=== PATIENT | female | born 1970 | race Two or more races ===

== ENCOUNTER 2024-05-20 14:37 | Outpatient (AMB) | payer MEDICAID, SELFPAY ==
[2024-05-20 15:03] VITALS: BP 105/73; PULSE 72; RESP 18; TEMP 36.2; O2SAT 96; BMI 26.6
--- NOTE | 2024-05-20 15:03 | ORTHONT_ITS ---
Vital signs 05/20/24 15:03 Height 1.6 m Height Method Stated Weight 68.209 kg Weight Measurement Method Standing Scale BMI 26.6 BP 105/73 Blood Pressure Source Automatic Cuff Blood Pressure Location Right Upper Arm Position Sitting Respiration 18 Pulse 72 Pulse Source Monitor Temp 97.1 F Temp Source Temporal Artery Scan Pulse Oximetry (%) 96 Oxygen Delivery Method Room Air Med/Allergies Allergies & Medications Allergies Penicillins Allergy (Severe, Verified 05/20/24 15:05) Swelling of Lip/Tongue/Throat Medication Reconciliation cyclobenzaprine 10 mg tablet 10 mg PO HS PRN Insomnia 08/02/20 [History Confirmed 05/20/24] acetaminophen 500 mg capsule 500 mg PO Q6H PRN 05/20/24 [History Confirmed 05/20/24] diclofenac sodium 1 % topical gel 2 g topical QID 05/20/24 [History Confirmed 05/20/24] ibuprofen 800 mg tablet 800 mg PO Q6H 05/20/24 [History Confirmed 05/20/24] meloxicam 7.5 mg tablet 7.5 mg PO QDAY #45 tabs 05/20/24 [Rx] Subjective Visit Visit for: new patient and knee Immunization / Flu Flu Vaccine in the Last 12 Months: No Flu Vaccine Exclusion Criteria: No Exclusion Criteria History of Present Illness Chief complaint: LEFT KNEE PAIN Patient is a 53-year-old female with Left knee pain and left knee arthritis. We will order weightbearing x-rays that she does not have any. The pains on the medial aspect of her knees. She has tried multiple anti-inflammatories as well as home exercises. She points to the medial aspect of her knee when asked where the pain is. 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 Exam Exam Patient is in no acute distress and is cooperative with the examination today. Breathing is nonlabored. Patient has a normal mood and affect. Bilateral extremities were evaluated and demonstrates sensation intact to light touch. Palpable pedal pulses are present. No significant edema is present. Bilateral hips were examined. The patient has no pain with log roll of the hips. Internal rotation to 30 degrees and external rotation to 30 degrees is painless. Negative FADIR. Right knee was examined today. The right knee is in reasonable alignment. Range of motion from 0-120 degrees. Knee is stable to varus and valgus as well as AP translation with <5mm. Patient has a negative McMurrays. There is no pain with patellofemoral compression and no crepitus noted. The knee is nontender to palpation. Left knee was examined today. The left knee is in [varus] alignment. Range of motion from [0-115] degrees. Knee is stable to varus and valgus as well as AP translation with <5mm. Patient has a [negative] McMurrays. There is [no] pain with patellofemoral compression and [no] crepitus noted. The knee is [tender] to palpation [medially]. Assessment and Plan Problem List (1) Arthritis of left knee: Status: Acute Plan: Patient is a pleasant 53-year-old female with likely left knee pain and left knee arthritis. We will order x-rays to see what her knee looks like. We will likely start with conservative treatment including injections at the next visit. We have given her prescription of meloxicam for now. We will see her at her next available visit after x-rays are performed (2) Pain in left knee: Status: Acute Office Procedures GNS Level of Care Nursing/Assessment Patient Status: Established Patient Nursing Assessment/Reassesment: Medication Reconciliation, Update PMH in EMR and Vital Signs Coordination of Care: Complex Care and Chronic Disease 1-5, Education Complex Pt/Fam, Consent,records obtained, informed consent, Results/Orders obtained and Staff clarify orders Established Patient Charge Established Patient Point Assignment: 95 Established Patient Point Charge: EP Level 3 (80-115) Past Medical History Past Medical History Have you ever been diagnosed with any of the following: Neurological Problems Seizures: No Head Trauma: Yes ( A CHILD) Cardiology Problems Hypercholesterolemia: Yes (TAKES MED) Congestive Heart Failure: No Edema: No Cellulitis: No Varicose Veins: No Respiratory Problems Chronic Obstructive Pulmonary Disease (COPD): No Tuberculosis: Yes (POSITIVE PPD. TREATMENT COMPLETED IN THE PAST) Sleep Apnea: No Stomache/Intestinal Problems Hepatitis: No Colorectal Cancer: No Gastroesophageal Reflux Disease: Yes Genital/Urinary Problems Renal Disease: No Reproductive Problems Breast Cancer: No Previous Pregnancies: Yes (X6) Musculoskeletal Problems Bone Cancer: No Carpal Tunnel Syndrome: No Endocrine Problems Diabetes Mellitus Type 1: No Diabetes Mellitus Type 2: No Parathyroid Disease: No Blood Problems Anemia: Yes Other Problems Hospitalization: No Shingles: No Falls: No Blood Transfusions: No Blood Transfusion Reaction: No Anesthesia Reactions: No Organ Transplant: No Chemotherapy: No Radiation Therapy: No MRSA: No Chicken Pox: Yes (?) Measles: No Mumps: No Cancer: No Cervical Cancer: No Lung Cancer: No Ovarian Cancer: No Surgical History Hysterectomy: No Pacemaker: No
== END 2024-05-20 15:21 | disposition home or self-care (01) ==
LOC: HODSRG 14:37
PROVIDERS: PCP Family Medicine; Referring Provider Family Medicine; Supervising Provider Orthopaedic Surgery Adult Reconstructive Orthopaedic Surgery; Visit Provider Orthopaedic Surgery Adult Reconstructive Orthopaedic Surgery
DX: M17.12 Unilateral primary osteoarthritis, left knee (principal); M25.562 Pain in left knee; E78.00 Pure hypercholesterolemia, unspecified; K21.9 Gastro-esophageal reflux disease without esophagitis
CPT/HCPCS: 99213; G0463

== ENCOUNTER 2024-06-18 10:30 | Outpatient (RCR) | payer MEDICAID, SELFPAY ==
--- NOTE | 2024-05-29 15:48 | PT.OIERPT ---
PT OP Initial Eval Patient Information Outpatient Physical Therapy Treatment Date: 05/29/24 Visit Reasons: Pain in left ankle/foot/joints Medical Diagnosis: M25.572 M25.562 S39.012D Treatment Dx #1: L knee pain Treatment Dx #2: LBP Start of Care: 05/29/24 Date of Onset: 7 months ago Smoking Status Smoking Status: Never smoker Initial Assessment Subjective: Pt is 53 yr old kyrgyz speaking female who c/o L knee pain and points to the medial aspect and reports constant 7/10 pain. 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 Increased LBP with bending, standing after sitting down and waking up. Unable to kneel due to pain. PMH: gastritis Imaging: Xray in EMR: Moderate narrowing medial joint space Pt goal: to do normal life with less L knee and LBP Objective: L knee AROM: Extension: -5 deg with pain Flexion: 110 deg with pain Venita's: positive Trunk AROM: FB: 10 from floor with pain Extension: 30% of full with relief Rotation: WNL no pain SB: increased LBP Assessment: Pt presents with L knee extension and flexion sensitivity consistent with meniscus tear. The pain doesn't seem to be radiating from the L/S and she feels LBP relief with extension so she was given HEP printout of extension based therex.Pt would benefit from skilled therapy and has fair rehab potential to meet goals. 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 1. Ind with HEP ? 2. Improved sitting/standing tolerance to 30 minutes with <=4/10 LBP ? 3. Decreased lower paraspinal TTP from mod to min 4. Improved L Knee AROM to full extension and 120 deg flexion Treatment Plan 1. Manual therapy ? 2. Therex ? 3. Modalities as indicated, moist heat, ice, estim, mechanical traction Frequency and Duration: 1-2x a week for 12 visits Certification Dates: 05/29/24 to 08/27/24 Procedure Charges OP PT Eval Mod Complex 30 minutes: Yes
--- NOTE | 2024-06-10 17:50 | PT.ODAYNRPT ---
PT Outpatient Daily Note OP Daily Note Outpatient Physical Therapy Treatment Date: 06/10/24 Visit Reasons: Pain in left ankle/foot/joints Subjective: pt. states no increase in pain post treatment Objective: see f/s per ther-ex MHP x7' post Rx Assessment: pt. can eccentrically control body weight on total gym Plan: continue POC Length of Time (minutes) of Treatment: 30 Minutes Procedure Charges Therapeutic Exercise 30 minutes: Yes
--- NOTE | 2024-06-18 11:57 | PT.ODAYNRPT ---
PT Outpatient Daily Note OP Daily Note Outpatient Physical Therapy Treatment Date: 06/18/24 Visit Reasons: Pain in left ankle/foot/joints Subjective: Pt reports L knee continues to be painful. Objective: Please see flow sheet for ther ex list. Assessment: Medial knee collapse present during squat exercise, verbal and tactile cues to correct. Plan: Continue with POC. Length of Time (minutes) of Treatment: 30 Minutes Procedure Charges Therapeutic Exercise 30 minutes: Yes
== END 2024-06-21 23:59 | disposition home or self-care (01) ==
LOC: CPTX 10:30
PROVIDERS: PCP Family Medicine; Referring Provider Family Medicine; Visit Provider Family Medicine
DX: M25.562 Pain in left knee (principal); M54.50 Low back pain, unspecified; M25.572 Pain in left ankle and joints of left foot; S39.012D Strain of muscle, fascia and tendon of lower back, subsequent encounter; X58.XXXD Exposure to other specified factors, subsequent encounter
CPT/HCPCS: 97110; 97162

== ENCOUNTER 2024-07-09 08:00 | Outpatient (RCR) | payer MEDICAID, SELFPAY ==
--- NOTE | 2024-06-25 09:54 | PT.ODAYNRPT ---
PT Outpatient Daily Note OP Daily Note Outpatient Physical Therapy Treatment Date: 06/25/24 Visit Reasons: Pain in left foot Subjective: Continued L knee pain. She ascends/descends ladders with the R LE. Objective: See f/S for therex MHP: x7' L knee Assessment: Pt has knee rotation sensitivity consistent with Xray results of Moderate narrowing medial joint space?? Plan: Continue as tolerated Length of Time (minutes) of Treatment: 30 Minutes Procedure Charges Therapeutic Exercise 30 minutes: Yes
--- NOTE | 2024-07-02 09:04 | PT.ODAYNRPT ---
PT Outpatient Daily Note OP Daily Note Outpatient Physical Therapy Treatment Date: 07/02/24 Visit Reasons: Pain in left foot Subjective: pt. reports therapy is slowly improving low back pain, she states 01/29 pain today prior to therapy. Objective: see flowsheet for ther-ex MT STM L/S with flexbar x7 mins pain 01/29 post PT intervention 11/29 Assessment: Ther-ex and MT STM to low back reduced pain Plan: continue PT per POC Length of Time (minutes) of Treatment: 30 Minutes Procedure Charges Therapeutic Exercise 30 minutes: Yes
--- NOTE | 2024-07-09 08:25 | PT.ODAYNRPT ---
PT Outpatient Daily Note OP Daily Note Outpatient Physical Therapy Treatment Date: 07/09/24 Visit Reasons: Pain in left foot Subjective: Pt reports L knee pain relief after therapy visits that lasts until that night Objective: See F/s for therex Assessment: Low tissue irritability of L knee with therex Plan: Continue per POC Length of Time (minutes) of Treatment: 30 Minutes Procedure Charges Therapeutic Exercise 30 minutes: Yes
== END 2024-07-22 23:59 | disposition home or self-care (01) ==
LOC: CPTX 08:00
PROVIDERS: PCP Family Medicine; Referring Provider Family Medicine; Visit Provider Family Medicine
DX: M25.562 Pain in left knee (principal); M54.50 Low back pain, unspecified; M25.572 Pain in left ankle and joints of left foot; S39.012D Strain of muscle, fascia and tendon of lower back, subsequent encounter; X58.XXXD Exposure to other specified factors, subsequent encounter
CPT/HCPCS: 97110

== ENCOUNTER 2024-07-22 07:54 | Outpatient (AMB) | payer MEDICAID, SELFPAY ==
[2024-07-22 08:25] VITALS: BP 113/75; PULSE 71; RESP 18; TEMP 36.3; O2SAT 97; BMI 26.6
--- NOTE | 2024-07-22 08:25 | PD.ORTHCLVIS ---
Vital signs 07/22/24 08:25 Height 1.6 m Height Method Stated Weight 68.181 kg Weight Measurement Method Standing Scale BMI 26.6 BP 113/75 Blood Pressure Source Automatic Cuff Blood Pressure Location Right Upper Arm Position Sitting Respiration 18 Pulse 71 Pulse Source Monitor Temp 97.3 F Temp Source Temporal Artery Scan Pulse Oximetry (%) 97 Oxygen Delivery Method Room Air Med/Allergies Allergies & Medications Allergies Penicillins Allergy (Severe, Verified 07/22/24 08:26) Swelling of Lip/Tongue/Throat Medication Reconciliation cyclobenzaprine 10 mg tablet 10 mg PO HS PRN Insomnia 08/02/20 [History Confirmed 07/22/24] acetaminophen 500 mg capsule 500 mg PO Q6H PRN 05/20/24 [History Confirmed 07/22/24] diclofenac sodium 1 % topical gel 2 g topical QID 05/20/24 [History Confirmed 07/22/24] ibuprofen 800 mg tablet 800 mg PO Q6H 05/20/24 [History Confirmed 07/22/24] meloxicam 7.5 mg tablet 7.5 mg PO QDAY #45 tabs 05/20/24 [Rx Confirmed 07/22/24] Exam Exam Patient is in no acute distress and is cooperative with the examination today. Breathing is nonlabored. Patient has a normal mood and affect. Bilateral extremities were evaluated and demonstrates sensation intact to light touch. Palpable pedal pulses are present. No significant edema is present. Bilateral hips were examined. The patient has no pain with log roll of the hips. Internal rotation to 30 degrees and external rotation to 30 degrees is painless. Negative FADIR. Right knee was examined today. The right knee is in reasonable alignment. Range of motion from 0-120 degrees. Knee is stable to varus and valgus as well as AP translation with <5mm. Patient has a negative McMurrays. There is no pain with patellofemoral compression and no crepitus noted. The knee is nontender to palpation. Left knee was examined today. The left knee is in [varus] alignment. Range of motion from [0-115] degrees. Knee is stable to varus and valgus as well as AP translation with <5mm. Patient has a [negative] McMurrays. There is [no] pain with patellofemoral compression and [no] crepitus noted. The knee is [tender] to palpation [medially]. X-rays demonstrate moderate arthritis medially and joint space narrowing Assessment and Plan Problem List (1) Arthritis of left knee: Status: Acute Plan: Patient is a pleasant 53-year-old female with likely left knee pain and left knee arthritis. We recommend meloxicam and will start with a cortisone injection today Recommend knee cortisone injection as patient would like to proceed with conservative treatment at this time. The risks and benefits of the procedure were reviewed with the patient and patient gave verbal consent to continue with the procedure. Procedure: performed by Dr. Malone Using sterile technique the left knee was thoroughly prepped with alcohol, and approximately 1 cc of Kenalog 40 mg/mL and 4 cc of 1% lidocaine was injected without resistance into the medial tibial femoral joint space. The patient tolerated the procedure. (2) Pain in left knee: Status: Acute Office Procedures GNS Level of Care Nursing/Assessment Patient Status: Established Patient Nursing Assessment/Reassesment: Medication Reconciliation, Update PMH in EMR and Vital Signs Coordination of Care: Complex Care and Chronic Disease 1-5, Education Complex Pt/Fam, Consent,records obtained, informed consent, Results/Orders obtained and Staff clarify orders Special Needs: Language special needs Established Patient Charge Established Patient Point Assignment: 95 Established Patient Point Charge: EP Level 3 (80-115) Surgical Proc/IM SQ injection Major Surgical Procedure: Yes (KNEE INJECTION) Medication Given Medication Given Medication Given: Yes Documented Dose Given: 4 Route: Infiitration Medication Given Medication Given Medication Given: Yes Documented Dose Given: 1 Route: Infiitration Office Meds Xylocaine 10 mg/mL (1 %) injection solution Performing Provider: Hosea Malone MD Performing Location: [facility] Administered by: Hosea Malone MD on 07/22/24 09:42 Dose Route Admin Location Dispensed Lot Number Expiration Date [facility] [employer] 20 mL Infiltration 20 mL [id number] 03/21/27 52504-754-26 [facility] triamcinolone acetonide 40 mg/mL suspension for injection Performing Provider: Hosea Malone MD Performing Location: [facility] Administered by: Hosea Malone MD on 07/22/24 09:42 Dose Route Admin Location Dispensed Lot Number Expiration Date [facility] [employer] 40 mg Infiltration LEFT 1 mL [id number] 12/19/25 1743-6931-75 [employer] [place] Intake Visit Data Collection New Patient or Established: Established Patient (seen at [facility] within 3 years) Reason for Visit:: F/U XRAYS Seen by Clinical Staff ONLY (RN/QUIN): No Verbal consent obtained for Telemed visit?: No Tabulating Machine Mechanic Required: Yes PCP or OBGYN visit in last 3 months: Yes Hx Now: No Do You Feel Safe at Home: Yes Authorities Contacted: N/A Questionairres Past Medical History Past Medical History Have you ever been diagnosed with any of the following: Neurological Problems Seizures: No Head Trauma: Yes ( A CHILD) Cardiology Problems Hypercholesterolemia: Yes (TAKES MED) Congestive Heart Failure: No Edema: No Cellulitis: No Varicose Veins: No Respiratory Problems Chronic Obstructive Pulmonary Disease (COPD): No Tuberculosis: Yes (POSITIVE PPD. TREATMENT COMPLETED IN THE PAST) Sleep Apnea: No Stomache/Intestinal Problems Hepatitis: No Colorectal Cancer: No Gastroesophageal Reflux Disease: Yes Genital/Urinary Problems Renal Disease: No Reproductive Problems Breast Cancer: No Previous Pregnancies: Yes (X6) Musculoskeletal Problems Bone Cancer: No Carpal Tunnel Syndrome: No Endocrine Problems Diabetes Mellitus Type 1: No Diabetes Mellitus Type 2: No Parathyroid Disease: No Blood Problems Anemia: Yes Other Problems Hospitalization: No Shingles: No Falls: No Blood Transfusions: No Blood Transfusion Reaction: No Anesthesia Reactions: No Organ Transplant: No Chemotherapy: No Radiation Therapy: No MRSA: No Chicken Pox: Yes (?) Measles: No Mumps: No Cancer: No Cervical Cancer: No Lung Cancer: No Ovarian Cancer: No Surgical History Hysterectomy: No Pacemaker: No Subjective Visit Visit for: follow up visit, knee and x-rays Immunization / Flu Flu Vaccine in the Last 12 Months: Yes Flu Vaccine Exclusion Criteria: Already Received History of Present Illness Chief complaint: F/U XRAYS Patient is a 53-year-old female with Left knee pain and left knee arthritis. The pains on the medial aspect of her knees. She has tried multiple anti-inflammatories as well as home exercises. She points to the medial aspect of her knee when asked where the pain is. She is here for xray results. 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
== END 2024-07-22 09:13 | disposition home or self-care (01) ==
PROVIDERS: PCP Family Medicine; Referring Provider Family Medicine; Supervising Provider Orthopaedic Surgery Adult Reconstructive Orthopaedic Surgery; Visit Provider Orthopaedic Surgery Adult Reconstructive Orthopaedic Surgery
DX: M17.12 Unilateral primary osteoarthritis, left knee (principal); M25.562 Pain in left knee; E78.00 Pure hypercholesterolemia, unspecified; K21.9 Gastro-esophageal reflux disease without esophagitis
CPT/HCPCS: 20610; 99213; J3301; J3490; G0463

== ENCOUNTER 2024-08-21 16:00 | Outpatient (RCR) | payer MEDICAID, SELFPAY ==
--- NOTE | 2024-07-24 16:32 | PT.ODAYNRPT ---
PT Outpatient Daily Note OP Daily Note Outpatient Physical Therapy Treatment Date: 07/24/24 Visit Reasons: Pain in left foot Subjective: Pt reports knee pain resolves for a short time after she leaves her PT session but once she is home and performs ADL s pain returns. Objective: Please see flow sheet for ther ex list. Assessment: Pt got a cramp during PT session pt rested a few minutes then resolved. Plan: Continue with POC. Length of Time (minutes) of Treatment: 30 Minutes Procedure Charges Therapeutic Exercise 30 minutes: Yes
--- NOTE | 2024-08-07 17:38 | PT.ODAYNRPT ---
PT Outpatient Daily Note OP Daily Note Outpatient Physical Therapy Treatment Date: 08/07/24 Visit Reasons: Pain in left foot Subjective: Less L knee pain since recent kenalog injection on 07/22 Objective: See F/S for therex MHP: x7' L knee Assessment: Good therex tolerance with low tissue irritability Plan: Continue per POC Length of Time (minutes) of Treatment: 30 Minutes Procedure Charges Therapeutic Exercise 30 minutes: Yes
--- NOTE | 2024-08-13 17:36 | PT.ODAYNRPT ---
PT Outpatient Daily Note OP Daily Note Outpatient Physical Therapy Treatment Date: 08/13/24 Visit Reasons: Pain in left foot Subjective: Less L knee pain since recent kenalog injection on 07/22 Objective: See F/S for therex Assessment: Good therex tolerance with low tissue irritability with squatting and total gym Plan: Continue per POC Length of Time (minutes) of Treatment: 30 Minutes Procedure Charges Therapeutic Exercise 30 minutes: Yes
--- NOTE | 2024-08-21 19:19 | PT.ODAYNRPT ---
PT Outpatient Daily Note OP Daily Note Outpatient Physical Therapy Treatment Date: 08/21/24 Visit Reasons: Pain in left foot Subjective: Less L knee pain since recent kenalog injection on 07/22 Objective: See F/S for therex Assessment: Good therex tolerance with low tissue irritability with squatting and total gym Plan: Continue per POC Length of Time (minutes) of Treatment: 30 Minutes Procedure Charges Therapeutic Exercise 30 minutes: Yes
== END 2024-08-22 23:59 | disposition home or self-care (01) ==
LOC: CPTX 16:00
PROVIDERS: PCP Family Medicine; Referring Provider Family Medicine; Visit Provider Family Medicine
DX: M25.562 Pain in left knee (principal); M54.50 Low back pain, unspecified; M25.572 Pain in left ankle and joints of left foot; S39.012D Strain of muscle, fascia and tendon of lower back, subsequent encounter; X58.XXXD Exposure to other specified factors, subsequent encounter
CPT/HCPCS: 97110

== ENCOUNTER 2024-09-17 08:00 | Outpatient (RCR) | payer MEDICAID, SELFPAY ==
--- NOTE | 2024-08-27 17:42 | PT.ODAYNRPT ---
PT Outpatient Daily Note OP Daily Note Outpatient Physical Therapy Treatment Date: 08/27/24 Visit Reasons: Pain in left foot Subjective: Less L knee pain since recent kenalog injection on 07/22 Objective: See F/S for therex Assessment: Good therex tolerance with low tissue irritability with squatting and total gym Plan: Continue per POC Length of Time (minutes) of Treatment: 30 Minutes Procedure Charges Therapeutic Exercise 30 minutes: Yes
--- NOTE | 2024-09-10 08:56 | PT.ODAYNRPT ---
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
--- NOTE | 2024-09-17 08:21 | PT.ODS1RPT ---
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 Increased standing tolerance to 60 mins Objective: See F/S for therex MHP: x7' L knee L knee AROM: Flexion: 125 deg Extension: full Assessment: Pt has attended 12/12 Rx sessions with good progress to meet therapy goals. Pt has improved standing tolerance for more than 30 mins and L knee AROM to full extension and 120 deg flexion to meet those goals. 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 Plan: D/C with updated HEP Procedure Charges Therapeutic Exercise 30 minutes: Yes
== END 2024-09-19 23:59 | disposition home or self-care (01) ==
LOC: CPTX 08:00
PROVIDERS: PCP Family Medicine; Referring Provider Family Medicine; Visit Provider Family Medicine
DX: M25.562 Pain in left knee (principal); M25.572 Pain in left ankle and joints of left foot; S39.012D Strain of muscle, fascia and tendon of lower back, subsequent encounter; X58.XXXD Exposure to other specified factors, subsequent encounter
CPT/HCPCS: 97110

== ENCOUNTER 2024-10-21 14:16 | Outpatient (AMB) | payer MEDICAID, SELFPAY ==
--- NOTE | 2024-10-21 14:31 | ORTHONT_ITS ---
Vital signs 10/21/24 14:34 Height 1.6 m Height Method Stated Weight 67.188 kg Weight Measurement Method Standing Scale BMI 26.2 BP 107/72 Blood Pressure Source Automatic Cuff Blood Pressure Location Left Upper Arm Position Sitting Respiration 18 Pulse 70 Pulse Source Monitor Temp 98.0 F Temp Source Temporal Artery Scan Pulse Oximetry (%) 95 Oxygen Delivery Method Room Air Med/Allergies Allergies & Medications Allergies Penicillins Allergy (Severe, Verified 10/21/24 14:40) Swelling of Lip/Tongue/Throat Medication Reconciliation cyclobenzaprine 10 mg tablet 10 mg PO HS PRN Insomnia 08/02/20 [History Confirmed 10/21/24] acetaminophen 500 mg capsule 500 mg PO Q6H PRN 05/20/24 [History Confirmed 10/21/24] diclofenac sodium 1 % topical gel 2 g topical QID 05/20/24 [History Confirmed 10/21/24] ibuprofen 800 mg tablet 800 mg PO Q6H 05/20/24 [History Confirmed 10/21/24] meloxicam 7.5 mg tablet 7.5 mg PO QDAY #45 tabs 05/20/24 [Rx Confirmed 10/21/24] Exam Exam Patient is in no acute distress and is cooperative with the examination today. Breathing is nonlabored. Patient has a normal mood and affect. Bilateral extremities were evaluated and demonstrates sensation intact to light touch. Palpable pedal pulses are present. No significant edema is present. Bilateral hips were examined. The patient has no pain with log roll of the hips. Internal rotation to 30 degrees and external rotation to 30 degrees is painless. Negative FADIR. Right knee was examined today. The right knee is in reasonable alignment. Range of motion from 0-120 degrees. Knee is stable to varus and valgus as well as AP translation with <5mm. Patient has a negative McMurrays. There is no pain with patellofemoral compression and no crepitus noted. The knee is nontender to palpation. Left knee was examined today. The left knee is in [varus] alignment. Range of motion from [0-115] degrees. Knee is stable to varus and valgus as well as AP translation with <5mm. Patient has a [negative] McMurrays. There is [no] pain with patellofemoral compression and [no] crepitus noted. The knee is [tender] to palpation [medially]. X-rays demonstrate moderate arthritis medially and joint space narrowing Assessment and Plan Problem List (1) Arthritis of left knee: Status: Acute Plan: Patient is a pleasant 53-year-old female with likely left knee pain and left knee arthritis. We recommend meloxicam and will Do a repeat cortisone injection today Recommend knee cortisone injection as patient would like to proceed with conservative treatment at this time. The risks and benefits of the procedure were reviewed with the patient and patient gave verbal consent to continue with the procedure. Procedure: performed by Dr. Malone Using sterile technique the left knee was thoroughly prepped with alcohol, and approximately 1 cc of Kenalog 40 mg/mL and 4 cc of 1% lidocaine was injected without resistance into the medial tibial femoral joint space. The patient tolerated the procedure. (2) Pain in left knee: Status: Acute Office Procedures GNS Level of Care Nursing/Assessment Patient Status: Established Patient Nursing Assessment/Reassesment: Medication Reconciliation, Update PMH in EMR and Vital Signs Coordination of Care: Complex Care and Chronic Disease 1-5, Education Complex Pt/Fam, Consent,records obtained, informed consent, Results/Orders obtained and Staff clarify orders Special Needs: Language special needs Established Patient Charge Established Patient Point Assignment: 95 Established Patient Point Charge: EP Level 3 (80-115) Surgical Proc/IM SQ injection Major Surgical Procedure: Yes (KNEE INJECTION) Medication Given Medication Given Medication Given: Yes Documented Dose Given: 4 Route: Infiitration Medication Given Medication Given Medication Given: Yes Documented Dose Given: 1 Route: Infiitration Office Meds Xylocaine 10 mg/mL (1 %) injection solution Performing Provider: Hosea Malone MD Performing Location: [facility] Administered by: Hosea Malone MD on 10/21/24 14:41 Dose Route Admin Location Dispensed Lot Number Expiration Date [facility] 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 Infiltration 20 mL [id number] 11/20/27 66558-096-99 [facility] triamcinolone acetonide 40 mg/mL suspension for injection Performing Provider: Hosea Malone MD Performing Location: [facility] Administered by: Hosea Malone MD on 10/21/24 14:41 Dose Route Admin Location Dispensed Lot Number Expiration Date [facility] 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[employer] 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 40 mg intra-articular KNEE 1 mL [id number] 12/19/25 7635-8523-22 [facility] Intake Visit Data Collection New Patient or Established: Established Patient (seen at [facility] within 3 years) Reason for Visit:: 3 MTH F/U LEFT KNEE INJ Cardiology Consultant Required: Yes PCP or OBGYN visit in last 3 months: Yes Hx Now: No Do You Feel Safe at Home: Yes Authorities Contacted: N/A Questionairres Past Medical History Past Medical History Have you ever been diagnosed with any of the following: Neurological Problems Seizures: No Head Trauma: Yes ( A CHILD) Cardiology Problems Hypercholesterolemia: Yes (TAKES MED) Congestive Heart Failure: No Edema: No Cellulitis: No Varicose Veins: No Respiratory Problems Chronic Obstructive Pulmonary Disease (COPD): No Tuberculosis: Yes (POSITIVE PPD. TREATMENT COMPLETED IN THE PAST) Sleep Apnea: No Smoking: No Smoking Exposure: No Stomache/Intestinal Problems Hepatitis: No Colorectal Cancer: No Gastroesophageal Reflux Disease: Yes Genital/Urinary Problems Renal Disease: No Reproductive Problems Breast Cancer: No Previous Pregnancies: Yes (X6) Musculoskeletal Problems Bone Cancer: No Carpal Tunnel Syndrome: No Endocrine Problems Diabetes Mellitus Type 1: No Diabetes Mellitus Type 2: No Parathyroid Disease: No Blood Problems Anemia: Yes Other Problems Hospitalization: No Shingles: No Falls: No Blood Transfusions: No Blood Transfusion Reaction: No Anesthesia Reactions: No Organ Transplant: No Chemotherapy: No Radiation Therapy: No MRSA: No Chicken Pox: Yes (?) Measles: No Mumps: No Cancer: No Cervical Cancer: No Lung Cancer: No Ovarian Cancer: No Surgical History Hysterectomy: No Pacemaker: No Subjective Visit Visit for: follow up visit, knee and injections Immunization / Flu Flu Vaccine in the Last 12 Months: Yes Flu Vaccine Exclusion Criteria: Already Received History of Present Illness Chief complaint: F/U XRAYS Patient is a 53-year-old female with Left knee pain and left knee arthritis. The pains on the medial aspect of her knees. She has tried multiple anti- inflammatories as well as home exercises. She points to the medial aspect of her knee when asked where the pain is. 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
[2024-10-21 14:34] VITALS: BP 107/72; PULSE 70; RESP 18; TEMP 36.7; O2SAT 95; BMI 26.2
== END 2024-10-21 14:45 | disposition home or self-care (01) ==
LOC: HODSRG 14:16
PROVIDERS: PCP Family Medicine; Referring Provider Family Medicine; Supervising Provider Orthopaedic Surgery Adult Reconstructive Orthopaedic Surgery; Visit Provider Orthopaedic Surgery Adult Reconstructive Orthopaedic Surgery
DX: M17.12 Unilateral primary osteoarthritis, left knee (principal); M25.562 Pain in left knee; E78.00 Pure hypercholesterolemia, unspecified
CPT/HCPCS: 20610; 99213; J3301; J3490; G0463

== ENCOUNTER 2025-02-19 14:09 | Outpatient (AMB) | payer MEDICAID, SELFPAY ==
--- NOTE | 2025-02-19 14:27 | PD.ORTHCLVIS ---
Vital signs 02/19/25 14:30 Height 1.6 m Height Method Measured Weight 66.763 kg Weight Measurement Method Standing Scale BMI 26.0 BP 134/81 H Blood Pressure Source Automatic Cuff Blood Pressure Location Left Upper Arm Position Sitting Respiration 18 Pulse 64 Pulse Source Monitor Temp 97.6 F Temp Source Temporal Artery Scan Pulse Oximetry (%) 98 Oxygen Delivery Method Room Air Med/Allergies Allergies & Medications Allergies Penicillins Allergy (Severe, Verified 02/19/25 14:33) Swelling of Lip/Tongue/Throat Medication Reconciliation cyclobenzaprine 10 mg tablet 10 mg PO HS PRN Insomnia 08/02/20 [History Confirmed 02/19/25] acetaminophen 500 mg capsule 500 mg PO Q6H PRN 05/20/24 [History Confirmed 02/19/25] diclofenac sodium 1 % topical gel 2 g topical QID 05/20/24 [History Confirmed 02/19/25] ibuprofen 800 mg tablet 800 mg PO Q6H 05/20/24 [History Confirmed 02/19/25] meloxicam 7.5 mg tablet 7.5 mg PO QDAY #45 tabs 05/20/24 [Rx Confirmed 02/19/25] celecoxib 200 mg capsule 200 mg PO BID #60 caps 02/19/25 [Rx Confirmed 02/19/25] Exam Exam Patient is in no acute distress and is cooperative with the examination today. Breathing is nonlabored. Patient has a normal mood and affect. Bilateral extremities were evaluated and demonstrates sensation intact to light touch. Palpable pedal pulses are present. No significant edema is present. Bilateral hips were examined. The patient has no pain with log roll of the hips. Internal rotation to 30 degrees and external rotation to 30 degrees is painless. Negative FADIR. Right knee was examined today. The right knee is in reasonable alignment. Range of motion from 0-120 degrees. Knee is stable to varus and valgus as well as AP translation with <5mm. Patient has a negative McMurrays. There is no pain with patellofemoral compression and no crepitus noted. The knee is nontender to palpation. Left knee was examined today. The left knee is in [varus] alignment. Range of motion from [0-115] degrees. Knee is stable to varus and valgus as well as AP translation with <5mm. Patient has a [negative] McMurrays. There is [no] pain with patellofemoral compression and [no] crepitus noted. The knee is [tender] to palpation [medially]. X-rays demonstrate moderate arthritis medially and joint space narrowing Assessment and Plan Problem List (1) Arthritis of left knee: Status: Acute Plan: Patient is a pleasant 53-year-old female with likely left knee pain and left knee arthritis. we have switched her medication to celebrex. We discussed the natural history of arthritis today. We will try physical therapy now as well. She wants to hold off on injection as she did not get great relief last time (2) Pain in left knee: Status: Acute Office Procedures GNS Level of Care Nursing/Assessment Patient Status: Established Patient Nursing Assessment/Reassesment: Medication Reconciliation, Orthostatic Vitals, Update PMH in EMR and Vital Signs Coordination of Care: Complex Care and Chronic Disease 1-5, Education Complex Pt/Fam, Consent,records obtained, informed consent, Results/Orders obtained and Staff clarify orders Special Needs: Language special needs Established Patient Charge Established Patient Point Assignment: 105 Established Patient Point Charge: EP Level 3 (80-115) MA Intake Visit Data Collection New Patient or Established: Established Patient (seen at [facility] within 3 years) Reason for Visit:: 3 MONTH LEFT KNEE INJECTION 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 TREATMENT COMPLETED IN THE PAST) Sleep Apnea: No Smoking: No Smoking Exposure: No Stomache/Intestinal Problems Hepatitis: No Colorectal Cancer: No Gastroesophageal Reflux Disease: Yes Genital/Urinary Problems Renal Disease: No Reproductive Problems Breast Cancer: No Previous Pregnancies: Yes (X6) Musculoskeletal Problems Bone Cancer: No Carpal Tunnel Syndrome: No Endocrine Problems Diabetes Mellitus Type 1: No Diabetes Mellitus Type 2: No Parathyroid Disease: No Blood Problems Anemia: Yes Other Problems Hospitalization: No Shingles: No Falls: No Blood Transfusions: No Blood Transfusion Reaction: No Anesthesia Reactions: No Organ Transplant: No Chemotherapy: No Radiation Therapy: No MRSA: No Chicken Pox: Yes (?) Measles: No Mumps: No Cancer: No Cervical Cancer: No Lung Cancer: No Ovarian Cancer: No Surgical History Hysterectomy: No Pacemaker: No Subjective Visit Visit for: follow up visit, knee and injections Immunization / Flu Flu Vaccine in the Last 12 Months: Yes Flu Vaccine Exclusion Criteria: Already Received History of Present Illness Chief complaint: F/U XRAYS Patient is a 53-year-old female with Left knee pain and left knee arthritis. The pains on the medial aspect of her knees. She has tried multiple anti-inflammatories as well as home exercises. She points to the medial aspect of her knee when asked where the pain is. 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
[2025-02-19 14:30] VITALS: BP 134/81; PULSE 64; RESP 18; TEMP 36.4; O2SAT 98; BMI 26.0
== END 2025-02-19 14:34 | disposition home or self-care (01) ==
PROVIDERS: PCP Family Medicine; Referring Provider Family Medicine; Supervising Provider Orthopaedic Surgery Adult Reconstructive Orthopaedic Surgery; Visit Provider Orthopaedic Surgery Adult Reconstructive Orthopaedic Surgery
DX: M17.12 Unilateral primary osteoarthritis, left knee (principal); M25.562 Pain in left knee; E78.00 Pure hypercholesterolemia, unspecified; K21.9 Gastro-esophageal reflux disease without esophagitis
CPT/HCPCS: 99213; G0463

== ENCOUNTER → 2025-02-23 | Outpatient (CLI) | payer MEDICAID, SELFPAY ==
--- NOTE | 2025-02-23 12:00 | XR_ITS ---
Examination: MRI lumbar spine without contrast Date and time of exam: February 23, 2025 1236 hours INDICATIONS: Low back pain one year radiating down the left leg Technique: Multiple MRI axial and sagittal sections lumbar spine. Sagittal T2-weighted images, TR 3500, TE 118 T1 weighted transverse sections, TR 688 T8.5, T2-weighted sagittal sections T1 weighted sagittal sections TR 621, TE 30 T2 axial sections, TR 4, 190, TE 84. Findings: Adequate alignment lumbar vertebral bodies. No lumbar fracture. Normal marrow signal lumbar vertebral bodies. Mild disc narrowing L5-S1 Diffuse lumbar disc desiccation. No spondylolisthesis. L5-S1 5.5 mm central lumbar disc bulge contiguous with both the right and left S1 nerve roots, extending to the left neural foramen producing mild left L5 ganglionic compression L4-L5 4 mm central lumbar disc bulge L3-L4 no disc protrusion L2-L3 no disc protrusion L1-L2 no disc protrusion IMPRESSION: L5-S1 5.5 mm central lumbar disc bulge contiguous with both right and left S1 nerve roots, extending to the left neural foramen producing mild left L5 ganglionic compression L4-L5 4 mm central lumbar disc bulge
== END | disposition home or self-care (01) ==
LOC: SMRI 12:15
PROVIDERS: PCP Family Medicine; Referring Provider Family Medicine; Visit Provider Family Medicine
DX: M51.370 Other intervertebral disc degeneration, lumbosacral region with discogenic back pain only (principal); M51.360 Other intervertebral disc degeneration, lumbar region with discogenic back pain only; G95.20 Unspecified cord compression
CPT/HCPCS: 72148

== ENCOUNTER 2025-04-20 15:30 | Outpatient (RCR) | payer MEDICAID, SELFPAY ==
--- NOTE | 2025-03-30 16:15 | PTNOTE_ITS ---
PT OP Initial Eval Patient Information Outpatient Physical Therapy Treatment Date: 03/30/25 Visit Reasons: post op left knee Medical Diagnosis: Left Knee OA Treatment Dx #1: Left Knee Pain Start of Care: 03/30/25 Date of Onset: 1 year ago Smoking Status Smoking Status: Never smoker Initial Assessment Subjective: Pt is a 54 y/o female reports of chronic left knee pain (6/10) with activities. Pt's xray confirmed moderate knee OA. Pt has limitation with standing, walking, chores, balance, self care, and performing recreational activities. Objective: Left Knee AROM: all motions are WFL with pain towards end range Left Knee MMTs: grossly 4-/5 Left Hip MMTs: grossly 3+/5 Palpation: TTP medial knee joint Assessment: Pt demonstrate left knee pain consistent with xray finding of OA leading to difficulty with ADLs. 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 Goals 1) Increase left knee AROM WNL in 6 wks to be able to perform chores 2) Decrease knee pain to 2/10 in 6 wks to be able to stand more than 30 mins 3) Increase left knee MMTs grossly to 4/5 in 6 wks to be able to perform squatting activities 4) Increase left hip MMTs grossly to 4-/5 in 6 wks to be able to perform recreational activities 5) Indep with HEP Treatment Plan 1) Manual Therapy 2) Therapeutic Activities 3) Therapeutic Exercises 4) Modalities (ice, heat) 5) Balance Training Frequency and Duration: 2 x wk for 6 wks Certification Dates: 03/30/25 to 06/29/25 Procedure Charges OP PT Eval Mod Complex 30 minutes: Yes
--- NOTE | 2025-04-08 16:28 | PT.ODAYNRPT ---
PT Outpatient Daily Note OP Daily Note Outpatient Physical Therapy Treatment Date: 04/08/25 Visit Reasons: post op left knee Subjective: Pt reports L knee is doing ok, painful at the end of the session. Objective: Please see flow sheet for ther ex list. Assessment: Pt demonstrates medial knee collapse during squat exercise, corrects post cues and adjusting foot placement. Plan: Continue with poC. Length of Time (minutes) of Treatment: 30 Minutes Procedure Charges Therapeutic Exercise 30 minutes: Yes
--- NOTE | 2025-04-13 16:52 | PT.ODAYNRPT ---
PT Outpatient Daily Note OP Daily Note Outpatient Physical Therapy Treatment Date: 04/13/25 Visit Reasons: post op left knee Subjective: Pt reports L knee was sore and painful after last session. Objective: Please see flow sheet for ther ex list. Assessment: regressed interventions to accommodate reported pain. Plan: Continue with pOC. Length of Time (minutes) of Treatment: 30 Minutes Procedure Charges Therapeutic Exercise 30 minutes: Yes
--- NOTE | 2025-04-20 16:03 | PT.ODAYNRPT ---
PT Outpatient Daily Note OP Daily Note Outpatient Physical Therapy Treatment Date: 04/20/25 Visit Reasons: post op left knee Subjective: Pt's knee is about the same. No new concerns to report. Pt was slightly sore after last session Objective: Please see flow chart for list of ther ex performed Assessment: tolerate exercises performed; patient frequently falls asleep in therapy and gets side track. Post heat helped with knee pain Plan: Continue with PT Length of Time (minutes) of Treatment: 30 Minutes Procedure Charges Therapeutic Exercise 30 minutes: Yes
== END 2025-04-21 23:59 | disposition home or self-care (01) ==
LOC: CPTX 15:30
PROVIDERS: PCP Orthopaedic Surgery Adult Reconstructive Orthopaedic Surgery; Referring Provider Orthopaedic Surgery Adult Reconstructive Orthopaedic Surgery; Visit Provider Orthopaedic Surgery Adult Reconstructive Orthopaedic Surgery
DX: M25.562 Pain in left knee (principal); R26.2 Difficulty in walking, not elsewhere classified; R26.89 Other abnormalities of gait and mobility
CPT/HCPCS: 97110; 97162

== ENCOUNTER 2025-05-14 13:31 | Outpatient (AMB) | payer MEDICAID, SELFPAY ==
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
[2025-05-14 13:49] VITALS: BP 108/70; PULSE 64; RESP 19; TEMP 36.8; O2SAT 95; BMI 26.1
== END 2025-05-14 14:07 | disposition home or self-care (01) ==
LOC: HODSRG 13:31
PROVIDERS: PCP Family Medicine; Referring Provider Family Medicine; Supervising Provider Orthopaedic Surgery Adult Reconstructive Orthopaedic Surgery; Visit Provider Orthopaedic Surgery Adult Reconstructive Orthopaedic Surgery
DX: M25.562 Pain in left knee (principal); M17.12 Unilateral primary osteoarthritis, left knee
CPT/HCPCS: 99213; G0463

== ENCOUNTER 2025-05-19 15:30 | Outpatient (RCR) | payer MEDICAID, SELFPAY ==
--- NOTE | 2025-04-27 16:43 | PT.ODAYNRPT ---
PT Outpatient Daily Note OP Daily Note Outpatient Physical Therapy Treatment Date: 04/27/25 Visit Reasons: Post op left knee Subjective: Pt reports knee is feeling a little better and notices her knee is not sore or painful post PT session like it was after her first session. Objective: Please see flow sheet for the drake list. Assessment: Pt instructed on squatting mechanics, pt demonstrated medial knee collapse and trunk flexion but corrects post cues and demonstration. Plan: Continue with POC. Length of Time (minutes) of Treatment: 30 Minutes Procedure Charges Therapeutic Exercise 30 minutes: Yes
--- NOTE | 2025-05-07 16:40 | PT.ODAYNRPT ---
PT Outpatient Daily Note OP Daily Note Outpatient Physical Therapy Treatment Date: 05/07/25 Visit Reasons: Post op left knee Subjective: Pt reports L knee is doing better. Objective: Please see flow sheet for the drake list. Assessment: Pt presents in clinic with decrease pain allowing for intervention progression. Plan: Continue with POC. Length of Time (minutes) of Treatment: 30 Minutes Procedure Charges Therapeutic Exercise 30 minutes: Yes
--- NOTE | 2025-05-11 16:29 | PT.ODAYNRPT ---
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 Objective: Please see flow sheet for ther ex list. Assessment: Pt presents in clinic with decrease pain allowing for interventions progression in clinic. Pt instructed on step up exercise to simulate work tasks. Plan: Continue with POC. Length of Time (minutes) of Treatment: 30 Minutes Procedure Charges Therapeutic Exercise 30 minutes: Yes
--- NOTE | 2025-05-19 16:11 | PT.ODAYNRPT ---
PT Outpatient Daily Note OP Daily Note Outpatient Physical Therapy Treatment Date: 05/19/25 Visit Reasons: Post op left knee Subjective: Pt reports progress with L knee. Objective: Please see flow sheet for ther ex list. Assessment: Added light resistance to lateral stepping exercise, pt completed with c/o muscle fatigue/soreness. Plan: Continue with POC. Length of Time (minutes) of Treatment: 30 Minutes Procedure Charges Therapeutic Exercise 30 minutes: Yes
== END 2025-05-22 23:59 | disposition home or self-care (01) ==
LOC: CPTX 15:30
PROVIDERS: PCP Orthopaedic Surgery Adult Reconstructive Orthopaedic Surgery; Referring Provider Orthopaedic Surgery Adult Reconstructive Orthopaedic Surgery; Visit Provider Orthopaedic Surgery Adult Reconstructive Orthopaedic Surgery
DX: M25.562 Pain in left knee (principal); R26.2 Difficulty in walking, not elsewhere classified; R26.89 Other abnormalities of gait and mobility; G89.29 Other chronic pain; M17.12 Unilateral primary osteoarthritis, left knee
CPT/HCPCS: 97110

== ENCOUNTER 2025-06-11 16:00 | Outpatient (RCR) | payer MEDICAID, SELFPAY ==
--- NOTE | 2025-06-04 16:45 | PT.ODAYNRPT ---
PT Outpatient Daily Note OP Daily Note Outpatient Physical Therapy Treatment Date: 06/04/25 Visit Reasons: Post op left knee Subjective: Pt reports L knee is doing better, has been doing work duties with no difficulty. Pt did mentioned she has pain sometimes in the morning but once she starts to move knee warms up and pain subsides. Objective: Please see flow sheet for ther ex list. Assessment: Pt demonstrates medial knee collapse with squat exercise, corrects post verbal and tactile cues. Plan: Continue with pOC. Length of Time (minutes) of Treatment: 30 Minutes Procedure Charges Therapeutic Exercise 30 minutes: Yes
--- NOTE | 2025-06-11 16:46 | PT.ODAYNRPT ---
PT Outpatient Daily Note OP Daily Note Outpatient Physical Therapy Treatment Date: 06/11/25 Visit Reasons: Post op left knee Subjective: Pt reports L knee is hurting today. Objective: Please see flow sheet for ther ex list. Assessment: Delayed progression of interventions today to accommodate pain reported. Plan: Continue with poC. Length of Time (minutes) of Treatment: 30 Minutes Procedure Charges Therapeutic Exercise 30 minutes: Yes
== END 2025-06-21 23:59 | disposition home or self-care (01) ==
LOC: CPTX 16:00
PROVIDERS: PCP Orthopaedic Surgery Adult Reconstructive Orthopaedic Surgery; Referring Provider Orthopaedic Surgery Adult Reconstructive Orthopaedic Surgery; Visit Provider Orthopaedic Surgery Adult Reconstructive Orthopaedic Surgery
DX: M25.562 Pain in left knee (principal); R26.2 Difficulty in walking, not elsewhere classified; R26.89 Other abnormalities of gait and mobility
CPT/HCPCS: 97110

== ENCOUNTER 2025-06-25 16:03 | Outpatient (RCR) | payer MEDICAID, SELFPAY ==
--- NOTE | 2025-06-25 16:44 | PT.ODAYNRPT ---
PT Outpatient Daily Note OP Daily Note Outpatient Physical Therapy Treatment Date: 06/25/25 Visit Reasons: post op left knee Subjective: pt reports knee feels good right now because she is not working. Objective: Please see flow sheet for ther ex list. Assessment: Pt demonstrates medial knee collapse during squats but self corrects after a few reps. Plan: Continue with pOC. Length of Time (minutes) of Treatment: 30 Minutes Procedure Charges Therapeutic Exercise 30 minutes: Yes
--- NOTE | 2025-07-02 08:30 | PT.ODS1RPT ---
PT OP Progress/Discharge Note Date of Service: 07/02/25 Progress Note/DC Note Progress Note/Discharge Note: DC Note Patient Information Visit Reasons: post op left knee Service Discharge Date: 07/02/25 Status Assessment: Pt has been seen for 11 visits (eval + 10 visits). Pt last treated on 06/25/25. Pt was contact regarding her PT plan of care 06/29/25. Pt mentioned she will like to be d/c from care and will follow up with MD. Pt did not meet set goals in therapy; thank you for your referrals.
== END 2025-07-22 23:59 | disposition home or self-care (01) ==
LOC: CPTX 16:03
PROVIDERS: PCP Orthopaedic Surgery Adult Reconstructive Orthopaedic Surgery; Referring Provider Orthopaedic Surgery Adult Reconstructive Orthopaedic Surgery; Visit Provider Orthopaedic Surgery Adult Reconstructive Orthopaedic Surgery
DX: M25.562 Pain in left knee (principal); R26.2 Difficulty in walking, not elsewhere classified; R26.89 Other abnormalities of gait and mobility; G89.29 Other chronic pain; M17.12 Unilateral primary osteoarthritis, left knee
CPT/HCPCS: 97110